=== PATIENT | male | born 1990 | race Caucasian/White ===

== ENCOUNTER 2016-08-14 19:13 | Emergency (ER) | payer SELFPAY ==
[~2016-08-14] VITALS: Ht 177.8 cm; Wt 68.1 kg
[~2016-08-14 19:13] MED LIST: MEDROL DOSEPAK4 MG PO; NAPROSYN500 MG PO; SUBOXONE 4 MG-1 EACH SL; TRAMADOL HCL50 MG PO
[2016-08-14 20:44] LABS: AMPHETAMINE NEGATIVE (500 ng/mL); BARBITURATES NEGATIVE (200 ng/mL); BENZODIAZEPINES PRESUMPTIVE POSITIVE (150 ng/mL); COCAINE PRESUMPTIVE POSITIVE (150 ng/mL); METHADONE NEGATIVE (200 ng/mL); METHAMPHETAMINE NEGATIVE (500 ng/mL); OPIATES (MORPHINE) PRESUMPTIVE POSITIVE (100 ng/mL); OXYCODONE NEGATIVE (100 ng/mL); PHENCYCLIDINE NEGATIVE (25 ng/mL); PROPOXYPHENE NEGATIVE (300 ng/mL); THC CANNABINOIDS NEGATIVE (50 ng/mL); TRICYCLIC ANTIDEPRESSANTS NEGATIVE (300 ng/mL)
[2016-08-14 20:45] LABS: ADD MEDTOX COMMENT Y; INTERNAL CONTROLS VALID? YES
[2016-08-14 20:58] LABS: EOSINOPHIL (%) 1.1 % (0-5); EOSINOPHIL COUNT 0.1 K/uL (0-0.3); HEMATOCRIT 39.6 % (38.0-50.0); IMMATURE GRANULOCYTE (%) 0.2 % (0.0-0.7); IMMATURE GRANULOCYTE COUNT 0.3 K/uL; MCH 27.2 PG (29.0-34.0); MCHC 32.6 G/DL (30.0-36.0); MCV 83.5 FL (86-99); MEAN PLAT.VOLUME 10.5 uM^3 (9.0-12.4); MONOCYTE (%) 6.2 % (3-12); MONOCYTE COUNT 0.8 K/uL (0-0.8); NEUTROPHIL (%) 77.2 % (45-76); NEUTROPHIL COUNT 10.2 K/uL (1.8-6.4); PLATELET COUNT 248 K/uL (156-360); RBC DIS.WIDTH-CV 13.3 % (11.8-14.6); RBC DIS.WIDTH-SD 39.9 % (39-53); RED BLOOD COUNT 4.74 M/uL (4.00-5.50); WHITE BLOOD COUNT 13.2 K/uL (4.1-10.2)
[2016-08-14 21:04] LABS: CHLORIDE 102 mEq/L (99-109); POTASSIUM 3.9 mEq/L (3.7-5.4)
[2016-08-14 21:05] LABS: SODIUM 138 mEq/L (136-147)
[2016-08-14 21:07] LABS: GLUCOSE 100 mg/dL (70-99)
[2016-08-14 21:08] LABS: ANION GAP 12 MEQ/L (2-14)
[2016-08-14 21:09] LABS: TOTAL BILIRUBIN 0.4 mg/dL (0.0-1.0)
[2016-08-14 21:10] LABS: ALKALINE PHOSPHATASE 85 IU/L (3-129)
[2016-08-14 21:11] LABS: GFR ESTIMATE (CALCULATED) > 59 mL/min/
[2016-08-14 21:12] LABS: UREA NITROGEN (BUN) 7 mg/dL (9-23)
[2016-08-14 21:22] LABS: BENZODIAZEPINES, URINE SCREEN POSITIVE (200 ng/mL)
[2016-08-14 22:24] VITALS: BP 105/57
== END 2016-08-14 22:34 | disposition home or self-care (01) ==
LOC: EME → EDBD 19:13 → EME 19:13
PROVIDERS: Emergency Medicine
DX: T40.1X4A Poisoning by heroin, undetermined, initial encounter (principal); F11.10 Opioid abuse, uncomplicated; F12.10 Cannabis abuse, uncomplicated; M25.511 Pain in right shoulder; F17.200 Nicotine dependence, unspecified, uncomplicated
CPT/HCPCS: 73030; 80053; 84999; 85025; 99281; 99284; J2310